=== PATIENT | male | born 1990 | race Hispanic/Latino ===

== ENCOUNTER 2020-02-25 06:40 | Emergency (ER) | payer OTHER | END 2020-02-25 09:18 | disposition home or self-care (01) | LOC: EDH 06:40 | DX: J12.89 Other viral pneumonia (principal); B34.9 Viral infection, unspecified; Z20.828 Contact with and (suspected) exposure to other viral communicable diseases; Z72.0 Tobacco use | CPT/HCPCS: 71045; 87426; 87804 ==

== ENCOUNTER 2021-07-11 17:03 | Emergency (ER) | payer OTHER ==
[~2021-07-11] VITALS: Ht 190.5 cm; Wt 127.0 kg
[2021-07-11 17:13] VITALS: BP 136/92
[2021-07-11] MEDS ORDERED: ACETAMINOPHEN WITH CODEINE 1 TAB TAB PO ONE (21:00)
[2021-07-11] MEDS ORDERED: DEXAMETHASONE 4 MG TAB PO SCH (21:30)
[2021-07-11] MEDS ORDERED: AZITHROMYCIN 250 MG TABLET PO ONE (21:30)
[2021-07-11] MEDS ORDERED: AMOX/CLAV 875/125MG TAB PO ONE (21:30)
[2021-07-11] MEDS ORDERED: ALBUTEROL INHALER 90MCG/INH IH PRN (21:30)
[2021-07-11] MEDS ORDERED: ALBU8.5H8 IH (21:41)
[2021-07-11] MEDS ORDERED: DEXA6TAB7 PO (21:41)
[2021-07-11] MEDS ORDERED: AMOX-429 PO (21:41)
[2021-07-11] MEDS ORDERED: NIRM1TAB PO (21:41)
== END 2021-07-11 22:30 | disposition home or self-care (01) ==
LOC: EDH 17:03
DX: U07.1 COVID-19 (principal); J12.82 Pneumonia due to coronavirus disease 2019; Z79.52 Long term (current) use of systemic steroids; Z79.899 Other long term (current) drug therapy
CPT/HCPCS: 71045; 87426; 99284; J8540

== ENCOUNTER 2023-04-07 06:09 | Emergency (ER) | payer OTHER ==
[~2023-04-07] VITALS: Ht 190.5 cm; Wt 126.1 kg
[~2023-04-07 06:09] MED LIST: ALBU8.5H8 IH; AMOX-429 PO; DEXA6TAB7 PO; NIRM1TAB PO
[2023-04-07 06:53] LABS: SARS-CoV-2, RNA, NAAT NEGATIVE SARS CoV-2 (NEGATIVE)
[2023-04-07 06:58] LABS: INFLUENZA TYPE A Negative For Type A (NEGATIVE); INFLUENZA TYPE B Negative For Type B (NEGATIVE)
[2023-04-07 07:17] LABS: RAPID GROUP A STREP positive (NEGATIVE)
[2023-04-07] MEDS ORDERED: AMOX875T2 PO (07:25)
[2023-04-07] MEDS ORDERED: AUD IH (07:25)
[2023-04-07] MEDS ORDERED: METH4TAB3 PO (07:25)
[2023-04-07] MEDS ORDERED: ALBUTEROL 0.083% 2.5 MG/3 ML INH IH ONE (07:30)
[2023-04-07 07:38] VITALS: BP 131/83; PULSE 60; RESP 17; O2SAT 96
== END 2023-04-07 07:39 | disposition home or self-care (01) ==
LOC: EDH 06:09
DX: J02.0 Streptococcal pharyngitis (principal); E66.9 Obesity, unspecified; Z20.822 Contact with and (suspected) exposure to COVID-19; Z79.899 Other long term (current) drug therapy
CPT/HCPCS: 99283; 87635; 87880; 87804 ×2; C9803